=== PATIENT | female | born 1985 | race Caucasian/White ===

== ENCOUNTER 2017-03-15 05:24 | Inpatient (IN) ==
[2017-03-15] MEDS ORDERED: CITRIC ACID/SODIUM CITRATE 30 ML UDCUP PO ONE (06:36)
[2017-03-15] MEDS ORDERED: FAMOTIDINE 20 MG/2 ML VIAL IV ONE (06:36)
[2017-03-15] MEDS ORDERED: ceFAZolin 2,000 MG in SODIUM CHLORIDE 0.9% 100 ML IV ONE (06:36)
[2017-03-15 06:48] LABS: Basophils % 0.2 % (0.0-0.8); Eosinophils # 0.1 10*3/uL (0.0-0.87); Eosinophils % 1.2 % (0.00-10.9); Hematocrit 29.7 VOL% (35.7-47.0); Hemoglobin 10.1 GM/DL (12.0-16.0); Immature Granulocytes % 0.6 %; Immature Granulocytes Absolute 0.05 #; Lymphocytes # 1.2 10*3/uL (1.4-4.0); Lymphocytes % 13.4 % (21.3-54.2); Mean Corpuscular Hemoglobin 28 PG (27-34); Mean Corpuscular Volume 82.3 FL (87-102); Mean Platelet Volume 11.7 FL (9.6-12.0); Monocytes # 0.6 10*3/uL (0.11-0.8); Monocytes % 6.4 % (1.7-12.7); Neutrophils # 6.7 10*3/uL (1.4-7.4); Neutrophils % 78.2 % (38.7-73.9); Platelet Count 183 T/CUMM (130-400); Red Blood Count 3.61 MC/CUMM (3.8-5.5); Red Cell Distribution Width 15.1 % (9.3-17.3); White Blood Count 8.6 T/CUMM (4-12)
[2017-03-15] MEDS ORDERED: OXYTOCIN/LR 20 UNIT/1,000 ML BAG IV ONE ×2 (06:48→17:56)
[2017-03-15] MEDS ORDERED: LACTATED RINGERS 1,000 ML IV SCH ×2 (07:00→11:54)
[2017-03-15 07:01] LABS: PT Patient Result 10.2 SECS; Partial Thromboplastin Time 25.6 SECS (0-40)
--- NOTE | 2017-03-15 07:12 | History and Physical Update ---
History and Physical Update - History and Physical H&P was reviewed, the patient examined and there: are no changes in the patients condition since last H&P was completed. - Dictation Physical: refer to scanned H&P
[2017-03-15 07:16] LABS: Albumin 2.9 G/DL (3.4-5.0); Bilirubin,Total 0.4 MG/DL (0.2-1.0); Osmolality,Calculated 279.1 MOS/KG (273-304); Potassium 3.2 MMOL/L (3.5-5.1); Total Protein 6.4 G/DL (6.4-8.3)
[2017-03-15] MEDS ORDERED: ONDANSETRON 4 MG/2 ML VIAL ONE ×2 (07:38→11:24)
[2017-03-15] MEDS ORDERED: SUCCINYLCHOLINE 200 MG/10 ML VIAL ONE (07:38)
[2017-03-15] MEDS ORDERED: PROPOFOL 200 MG/20 ML VIAL IV ONE (07:38)
[2017-03-15] MEDS ORDERED: OXYTOCIN 10 UNIT/ML VIAL ONE ×2 (08:22→17:50)
--- NOTE | 2017-03-15 08:48 | Operative Note ---
Date of procedure: 03/15/17 Pre-op diagnosis: IUP at 39+,hx prior c-sectionx2,desires BTL,Gest HTN Post-op diagnosis: same Procedure: Repeat with BTL Findings; infant female 9 and 9, wt 7 pounds 1 ounce ...normal tubes and ovaries and uterus Procedure: The procedure was as follows. Risks benefits alternatives and complications were reviewed with the patient the patient was amenable to the procedure the patient also desired permanent sterilization. The patient has had a bad experience with spinal so she opted to proceed with general anesthesia. The patient was taken to the operating room where she was prepped and draped in the usual sterile fashion. Induction of general anesthesia was done and shortly after induction of anesthesia was performed the Pfannenstiel skin incision was made with a prior scar head noted and carried out to the underlying fascia the fascia was incised in the midline and extended laterally with Gaston scissors. The superior aspect of the fascial incision was dissected off the rectus muscle the same was done with the inferior aspect of the fascial incision. The rectus muscle was divided in the midline and extended superiorly and inferiorly and the peritoneum entered sharply with Metzenbaum scissors and also extended superiorly and inferiorly with good visualization of the bladder. The bladder blade was inserted the vesicouterine peritoneum identified and entered sharply with Metzenbaum scissors extended laterally the bladder flap was then created. The lower uterine segment was incised with a scalpel and extended laterally the amniotomy was performed and clear fluid was noted. The infant's head was delivered atraumatically there was a nuchal cord that was reduced easily and the mouth was suctioned and the once the cord was clamped and cut the infant was handed off to the waiting nurse. The placenta was then removed manually and the uterus cleared of all clots and debris with a clean dry sponge. The uterus was then exteriorized and the lower uterine segment was repaired using 0 Vicryl in a running locked fashion with a second imbricating layer. Hemostasis assured. Attention was then turned to the fallopian tubes which first the right fallopian tube was grasped in an area of avascular mesosalpinx was cauterized a suture of 3 oh plain gut was tied to 1 side of the fallopian tube and a second tie was tied to the other side for a approximately 2 cm knuckle of tube was isolated suture-ligated and cut and the segment was taken off the field the same was done on the left side. Hemostasis was assured. The uterus was firm but did get boggy at times but the bleeding was always under control so a dose of 20 units of Pitocin was given intramuscularly into the uterus. Bleeding was all under control. Uterus was then reintroduced into the abdominal cavity irrigation was performed lower uterine segment was inspected and noted to be. The lower uterine segment was covered with Interceed to help prevent adhesions. The peritoneum was reapproximated using 3- 0 Vicryl in a running fashion and the muscle was reapproximated using 3-0 Vicryl in interrupted mattress fashion. The fascia was reapproximated using 0 Vicryl in a running fashion starting at either angle and tying in the middle. The subcutaneous fat was reapproximated using 3-0 Vicryl in a running fashion and the skin was reapproximated using Ensor status. Sponge lap and instrument counts were correct 3 the patient went to recovery room in stable condition. Anesthesia: GETA Surgeon / Physician: Rima Harmon Estimated blood loss: other (500) Urine output: 400 (clear) Specimens: other (segments of rt and left fallopian tube) Condition: stable Results - Labs CBC & BMP: 03/15/17 06:30 03/15/17 06:30 Discharge Plan - Discharge Medications No Action Vit No.130/Iron/Folic [ Vitamins] 1 each PO DAILY Labetalol Tab [Trandate Tab] 1 mg PO DAILY - Follow Up or Referral - Forms/Instructions
[2017-03-15 09:00] LABS: Apearance,Urine CLEAR (Clear); Bilirubin,Urine Negative (Negative); Blood, Urine Negative (Negative); Glucose,Urine (UA) Negative (Negative); Ketones,Urine Negative (Negative); Nitrite,Urine Negative (Negative); Protein,Urine Negative; Squamous Epithelial Cell,Urine Occasional /HPF (0-10); Urine Color Colorless (Yellow); Urine Specific Gravity 1.003 (1.001-1.035); Urine Urobilinogen < 2.0 EU/DL (0.2-1.0); WBC,Urine 1 /HPF (0-6)
[2017-03-15] MEDS ORDERED: HYDROmorphone 2 MG/1 ML VIAL IV PRN (09:12)
[2017-03-15] MEDS ORDERED: HYDROmorphone PCA 30 MG/30 ML SYRINGE IV ONE (09:13)
[2017-03-15] MEDS ORDERED: HYDROmorphone 2 MG/1 ML VIAL IV ONE (09:14)
[2017-03-15] MEDS ORDERED: NALOXONE 0.4 MG/ML VIAL IV PRN (09:15)
[2017-03-15] MEDS ORDERED: HYDROmorphone PCA 30 MG/30 ML SYRINGE IV SCH (09:30)
[2017-03-15] MEDS ORDERED: fentaNYL 100 MCG/2 ML VIAL ONE (09:49)
[2017-03-15] MEDS ORDERED: MIDAZOLAM 2 MG/2 ML VIAL ONE (09:50)
[2017-03-15] MEDS ORDERED: RHO(D) IMMUNE GLOBULIN 300 MCG SYRINGE IM ONE (11:54)
[2017-03-15] MEDS ORDERED: ONDANSETRON 4 MG/2 ML VIAL IV PRN (11:54)
[2017-03-15] MEDS ORDERED: IBUPROFEN 800 MG TABLET PO PRN (11:54)
[2017-03-15] MEDS ORDERED: ACETAMINOPHEN 325 MG TABLET PO PRN (11:54)
[2017-03-15] MEDS ORDERED: OXYTOCIN/LR 30 UNIT/1,000 ML BAG IV ONE (11:54)
--- NOTE | 2017-03-15 17:10 | Anesthesia Post-Op ---
Anesthesia Post OP - Post Ansesthetic Evaluation Patient seen in post op: Yes Resp: within normal limits CV: within normal limits Mental: within normal limits Temp: within normal limits Waxw-Bd-Lokniyoze: within normal limits Nausea and Vomiting: within normal limits Pain: within normal limits
[2017-03-15] MEDS ORDERED: miSOPROStol 200 MCG TABLET RECTAL ONE (18:37)
[2017-03-15 19:24] LABS: Hematocrit 27.2 VOL% (35.7-47.0); Hemoglobin 9.4 GM/DL (12.0-16.0); Red Blood Count 3.28 MC/CUMM (3.8-5.5); White Blood Count 12.7 T/CUMM (4-12)
[2017-03-15 19:25] LABS: Basophils % 0.2 % (0.0-0.8); Eosinophils % 0.1 % (0.00-10.9); Immature Granulocytes % 0.5 %; Immature Granulocytes Absolute 0.06 #; Lymphocytes # 0.8 10*3/uL (1.4-4.0); Lymphocytes % 6.6 % (21.3-54.2); Mean Corpuscular HGB Conc 34.6 GM/DL (32-36); Mean Corpuscular Hemoglobin 29 PG (27-34); Mean Corpuscular Volume 82.9 FL (87-102); Mean Platelet Volume 11.2 FL (9.6-12.0); Monocytes # 0.6 10*3/uL (0.11-0.8); Monocytes % 4.7 % (1.7-12.7); Neutrophils # 11.2 10*3/uL (1.4-7.4); Neutrophils % 87.9 % (38.7-73.9); Platelet Count 161 T/CUMM (130-400); Red Cell Distribution Width 14.6 % (9.3-17.3)
[2017-03-15] MEDS: DOCUSATE SODIUM 100 MG CAPSULE PO SCH (21:02)
[2017-03-15] MEDS: LABETALOL 200 MG TABLET PO SCH (21:23)
[2017-03-16 05:29] LABS: Basophils % 0.4 % (0.0-0.8); Eosinophils # 0.1 10*3/uL (0.0-0.87); Eosinophils % 0.9 % (0.00-10.9); Hematocrit 26.8 VOL% (35.7-47.0); Hemoglobin 8.9 GM/DL (12.0-16.0); Immature Granulocytes % 0.4 %; Immature Granulocytes Absolute 0.04 #; Lymphocytes % 9.1 % (21.3-54.2); Mean Corpuscular HGB Conc 33.2 GM/DL (32-36); Mean Corpuscular Hemoglobin 29 PG (27-34); Mean Corpuscular Volume 86.2 FL (87-102); Mean Platelet Volume 11.5 FL (9.6-12.0); Monocytes # 0.6 10*3/uL (0.11-0.8); Monocytes % 5.8 % (1.7-12.7); Neutrophils # 8.9 10*3/uL (1.4-7.4); Neutrophils % 83.4 % (38.7-73.9); Platelet Count 146 T/CUMM (130-400); Red Blood Count 3.11 MC/CUMM (3.8-5.5); White Blood Count 10.7 T/CUMM (4-12)
[2017-03-16] MEDS ORDERED: guaiFENesin 200 MG/10 ML UDCUP PO PRN (06:31)
[2017-03-16] MEDS: MAGNESIUM HYDROXIDE SUSP 30 ML UDCUP PO PRN ×2 (09:32→20:00)
[2017-03-16] MEDS: LABETALOL 200 MG TABLET PO SCH ×2 (09:32→20:00)
[2017-03-16] MEDS: SIMETHICONE CHEW 80 MG TABLET PO PRN ×2 (09:32→15:42)
[2017-03-16] MEDS: DOCUSATE SODIUM 100 MG CAPSULE PO SCH ×2 (09:32→20:00)
[2017-03-16] MEDS: MULTIVITAMIN (PRENATAL) TABLET PO SCH (09:32)
[2017-03-16] MEDS ORDERED: ALBUTEROL 1.25 MG/3 ML NEB RESP TX PRN (10:04)
--- NOTE | 2017-03-16 10:10 | OB/GYN Progress Note ---
Assessment and Plan (1) History of 3 sections Status: Acute Assessment and plan: POD#1 s/p a repeat wiht BTL. Pt with respiratory congestions. We will get a breathing treatment for the pt. 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 her bleeding is under control . She is passing gar and tolerating PO. Her pain is under control with pain medication. Exam CALCULATION REVIEWER - Constitutional Vitals: Vital Signs Temp Pulse Pulse Pulse Resp BP BP 03/16/17 08:19 20 03/16/17 07:39 98.1 F 81 20 146/79 03/16/17 04:00 97.7 F 88 88 24 140/81 140/81 03/15/17 23:34 97.1 F L 82 82 24 134/70 134/70 03/15/17 19:20 97.2 F L 73 73 24 146/79 146/79 03/15/17 16:00 97.2 F L 68 20 147/76 03/15/17 14:30 72 20 152/85 03/15/17 13:30 69 20 148/77 03/15/17 12:30 74 20 143/80 03/15/17 12:00 67 20 159/78 03/15/17 11:30 98 F 69 20 160/83 03/15/17 10:21 65 18 151/88 03/15/17 10:12 59 L 18 131/70 Pulse Ox Pulse Ox 03/16/17 08:19 03/16/17 07:39 97 03/16/17 04:00 96 96 03/15/17 23:34 95 95 03/15/17 19:20 95 95 03/15/17 16:00 95 03/15/17 14:30 92 L 03/15/17 13:30 96 03/15/17 12:30 95 03/15/17 12:00 95 03/15/17 11:30 94 L 03/15/17 10:21 95 03/15/17 10:12 95 General appearance: over weight - Respiratory Respiratory exam: Present: rhonchi, wheezes. Absent: accessory muscle use - Cardiovascular Cardiovascular exam: Present: regular rate and rhythm - GI/Abdominal GI/Abdominal exam: Present: normal bowel sounds. Absent: guarding, rebound - Extremities Exam Extremities exam: Absent: calf tenderness - Neurological Exam Neurological exam: Present: alert, oriented X3 - Psychiatric Psychiatric exam: Present: normal affect Results - Labs CBC & BMP: 03/16/17 04:57 03/15/17 06:30
[2017-03-16] MEDS ORDERED: RHO(D) IMMUNE GLOBULIN 300 MCG SYRINGE IM ONE (12:27)
[2017-03-17] MEDS: MULTIVITAMIN (PRENATAL) TABLET PO SCH (08:30)
[2017-03-17] MEDS: LABETALOL 200 MG TABLET PO SCH (08:30)
[2017-03-17] MEDS: DOCUSATE SODIUM 100 MG CAPSULE PO SCH (08:30)
[2017-03-17 11:27] VITALS: BP 146/79
--- NOTE | 2017-03-17 13:01 | Discharge Summary ---
Hospital Course - Hospital Course Hospital Course: The patient was admitted at 39 weeks for repeat and bilateral tubal ligation. She was to have a the following day however her blood pressures were a little elevated so we did her a day early. He was on p.o. labetalol prior to delivery and she was to be sent home on the same. Her blood pressures while in the hospital has been stable as well as her lab work. Patient was ready to go home on postoperative day #2 both her pain and bleeding were under control. Precautions were given. Diagnosis - Discharge Diagnosis (1) History of 3 sections Status: Acute Specialty Discharge - Follow Up or Referrals Follow up with: Rima Harmon MD [Primary Care Provider] - 03/30/17 1:45 pm Discharge Plan - Discharge Data Disposition: Disch To Home/Self Care Condition at Discharge: Stable Discharge Diet: advance to your usual diet Activity: no lifting Hygiene: may shower Weight Bearing at Discharge: full weight bearing Driving: not until seen by doctor Contact your physician if you experience:: fever over 101, Difficulty voiding, Redness or swelling, Nausea/Vomiting, Shortness of breath, Bleeding - Discharge Medications New HYDROcodone/ACETAMIN 5-325 [[place] 5-325] 1 - 2 tablet PO Q6H PRN #30 tablet PRN Reason: Abdominal Pain No Action Vit No.130/Iron/Folic [ Vitamins] 1 each PO DAILY Labetalol Tab [Trandate Tab] 1 mg PO DAILY - Follow Up or Referral Follow Up: Rima Harmon MD [Primary Care Provider] - 03/30/17 1:45 pm - Forms/Instructions Exam - Constitutional Vitals: Period Temp Pulse Resp BP Sys/Styles Pulse Ox Last 24 Hr 97.6 F-98.4 F 76-93 18-22 146-164/76-90 95-97 General appearance: no acute distress, over weight - Respiratory Respiratory exam: Present: clear to auscultation bilaterally. Absent: accessory muscle use - Cardiovascular Cardiovascular exam: Present: regular rate and rhythm - GI/Abdominal GI/Abdominal exam: Present: tenderness (mild and appropriate). Absent: guarding , rebound - Extremities Exam Extremities exam: Absent: calf tenderness - Neurological Exam Neurological exam: Present: alert, oriented X3 - Psychiatric Psychiatric exam: Present: normal affect - Skin Skin exam: Present: normal color DS: Provider Date of admission: 03/15/17 05:24 Primary care physician: Rima Manzo- Attending physician on admission: Rima Manzo- Consults: 03/15/17 06:36 Consult to Anesthesiology [CONS] Routine Consulting Provider: Reason for Anesthesiology: Pre-op Clearance 03/15/17 11:54 Consult to Drier Operator [CONS] Routine Consult Drier Operator: Breast Feeding Discharging clinician: Rima Manzo- Expected date of discharge: 03/17/17
[2017-03-17] MEDS: SIMETHICONE CHEW 80 MG TABLET PO PRN (13:36)
[2017-03-17] MEDS: MAGNESIUM HYDROXIDE SUSP 30 ML UDCUP PO PRN (13:36)
[2017-03-17] MEDS ORDERED: DIPH/TET/ACEL PERT BOOSTER VACCINE 0.5 ML VIAL IM ONE (14:15)
== END 2017-03-17 14:50 | disposition home or self-care (01) | DRG 766 ==
LOC: N.LD 05:24 → N.OB 11:16
PROVIDERS: ADMIT Obstetrics & Gynecology; ATTEND Obstetrics & Gynecology